=== PATIENT | female | born 1990 | race Caucasian/White ===

== ENCOUNTER 2016-11-18 21:20 | Emergency (ER) | payer MEDICAID ==
[~2016-11-18] VITALS: Ht 162.6 cm; Wt 79.3 kg
[~2016-11-18 21:20] MED LIST: ETON68IM3 IL; HYDR25TA85 PO; PROP20TA7 PO; VENL-69 PO
[2016-11-18 21:30] VITALS: TEMP 98.1; Ht 162.6 cm; Wt 79.3 kg
[2016-11-18] MEDS ORDERED: VENL-67 PO (21:39)
[2016-11-18] MEDS ORDERED: PRAZ2CAP2 PO (21:39)
--- NOTE | 2016-11-18 21:44 | NUR ---
PROVIDER DR. ABBASI IN ROOM
--- NOTE | 2016-11-18 21:50 | ERPDOC ---
Departure Disposition Decision Date: Nov 18, 2016 Disposition Decision Time: 23:00 Disposition: 01 DISCHARGED HOME, SELF-CARE Impression Impression Impression: Primary Impression: Neck pain Severity: Severe Condition: Improved Seen By: Physician only Patient Instructions: Acute Neck Pain (ED) Problems/Meds/Labs Reviewed?: Yes Medications reviewed and manag: Yes Additional Instructions: Take ibuprofen 600 mg 4 times daily or Aleve 2 tablets twice daily for baseline pain control Percocet 5 mg one tablet up to 4 times daily as needed for pain Zofran 4 mg dissolvable, one tablet 4 times daily as needed with Percocet for nausea See your doctor next week if not improving Follow up care ordered?: Yes Mental Status: Alert, Oriented Scripts Ondansetron (Zofran Odt) 4 Mg Tab.rapdis 4 MG PO Q6HR, #30 TAB Oral disintegrating tablet Prov: FORD ABBASI MD 11/18/16 Oxycodone HCl/Acetaminophen (Percocet 5-325 mg Tablet) 5-325 Tablet 1 TAB PO QID for PAIN, #30 TAB Take 1 tablet, by mouth, 4 times a day. Prov: FORD ABBASI MD 11/18/16 HPI - Back Pain General Chief Complaint: Neck Pain Stated Complaint: NECK PAIN Time Seen by Provider: 21:25 Source: patient Exam Limitations: no limitations HPI - Back Pain Initial Comments 5 day history progressive midline posterior neck pain without injury. Pain has worsened to the point she is crying and vomiting from pain. No relief with otc meds. Mild achy feeling prior Pt admits she "carries all her stress in her neck." Occurred At: home Onset/Timing: Gradual Duration: 1 week Severity/Quality: severe Location: C-spine Method of Injury/Context: unknown Associated Sypmtoms: DENIES: fever, loss of bladder control, loss of bowel control, lower back pain, muscle spasms, numbness in legs/feet, sensory/motor loss, tingling in legs/feet, weakness Hx of Similar Symptoms: No Allergies: Coded Allergies: Sulfa (Sulfonamide Antibiotics) (Verified Allergy, Intermediate, HIVES, ) hydrocodone (Verified Allergy, Mild, HIVES, 08/07/16) tramadol (Verified Adverse Reaction, Intermediate, seizures, interacts with effexor, 08/07/16) Past History Past Medical History Respiratory: asthma GI: ulcers Female: UTI, kidney stones Psychological: anxiety, other Surgical History Denies Surgeries Vaccines Hx Influenza Vaccination: Yes (fall 2013) Hx Pneumococcal Vaccination: No Hx Tetanus, Diptheria, Pertuss: Yes (04/19/15) Social History Smoking Status: Never smoker Does patient use chewing tobac: No Second Hand Exposure: No Substance Use Type: does not use Alcohol Intake: occasionally Last Drink: prior to arrival Marital Status: Single Housing: apartment Record Review Pertinent history updated: Yes Review of Systems Constitutional Constitutional: DENIES: appetite decrease, appetite increase, chills, dizziness , fever, weakness ENMT Ears: DENIES: pain Hearing: DENIES: hearing loss, tinnitus Balance: DENIES: vertigo Mouth/Throat: DENIES: change in swallowing, change in voice, hoarsness, painful swallowing, sore throat Cardiovascular Cardiac: DENIES: chest pain, dyspnea on exertion Rhythm/Rate: DENIES: irregular beat, palpitations, tachycardia Vascular: DENIES: pedal edema Pulmonary Respiratory: DENIES: cough, dyspnea, pleuritic chest pain GI Upper Abdomen: DENIES: dysphagia, heartburn/indigestion, nausea, pain, vomiting Lower Abdomen: DENIES: blood in stool, constipation, diarrhea, pain General: DENIES: burning, dysuria, frequency, pain, urgency Musculoskeletal General: pain, tenderness, DENIES: atrophy of muscles, cramps, gout, joint pain , joint swelling, spasm, weakness Integumentary Skin: DENIES: rash, sores Neurological General: DENIES: headache, numbness, tingling, vertigo, weakness Psychiatric Psychiatric: DENIES: anxiety, depression, nervousness Physical Exam General General Nourishment: well nourished, well developed, appears stated age General Body Habitus: well groomed Vitals and Pain First Documented Vital Signs Date Time Temp Pulse Resp B/P Pulse Ox O2 Delivery O2 Flow Rate FiO2 11/18/16 21:30 98.1 85 16 133/89 97 Room Air Weight: Kilograms: 79.300 Height (feet): 5 Height (inches): 4.00 Triage Pain Scale: RN VS reviewed by Provider: Yes Comments Patient appears in moderate distress from pain, flexing her neck slightly forward at the lower cervical region to achieve the greatest comfort Normal Exams: Head: Normocephalic w/o trauma Eyes: Pupils are PERRLA w/ EOMI, No scleral icterus, irritation, or foreign bodies noted ENMT (brief) ENMT Brief: FOUND: TM clear, TM good light reflex, ear canals clear, mucosa moist, nasal erythema, nasal exudate, nasal swelling, normal dentition, normal tonsils, NOT FOUND: lesions, petechiae, pharnyx erythema, tonsillar deviation Neck (brief) Neck: FOUND: tenderness (moderate midline posterior cervical neck tenderness, mild to moderate paraspinal tenderness throughout the cervical spine.), trachea midline, NOT FOUND: JVD, adenopathy, nuchal rigidity, thyromegaly, tracheal deviation Comments When laying flat patient is able to touch her chin to her chest, but this does cause posterior pain. Negative leg raise bilaterally Respiratory (brief) Respiratory: FOUND: clear all siddiqui, equal bilaterally, symmetrical, NOT FOUND : rales, spasm, tenderness, wheezes Cardiovascular (brief) Cardiac: FOUND: regular rate, regular rhythm, NOT FOUND: click, gallop, murmur , pedal edema Capillary Refill: <2 sec Pulses: all distal extremities, equal, strong Abdomen (brief) Abdominal Brief: FOUND: bowel normo active x4, soft, NOT FOUND: distended, hepatosplenomegaly, tender Lymphatic (brief) Lymphatic Brief: NOT FOUND: adenopathy, lymphedema Musculoskeletal (brief) Musculoskeletal Brief: FOUND: tenderness, NOT FOUND: deformity, loss of motion , spasm Integumentary (brief) Integumentary Brief: FOUND: dry, pink, warm Neurologic (brief) Neurological Brief: FOUND: CN w/o gross def to obs, DTR 2/4 all extremities, gait w/o gross def to obs, motor-no gross deficits, sensory-no gross deficits, NOT FOUND: ataxia Psychiatric (brief) Psychiatric Brief: FOUND: alert, attentive, normal affect, oriented Progress Results/Orders Orders Procedure Category Date Status Time Ct Cervical Spine W/O CT 11/18/16 Taken Contrast Iv Lock (Ed Only) EDM 11/18/16 Transmitted 21:50 Cbc W/Auto LAB 11/18/16 Complete Diff-Reflex Manual C-Reactive Protein - LAB 11/18/16 Complete CRP 21:50 Lactate - Lactic Acid LAB 11/18/16 Complete Ketorolac (Toradol) PHA 11/18/16 Complete 22:00 Orphenadrine (Norflex) PHA 11/18/16 Complete 22:00 Diphenhydramine PHA 11/18/16 Complete (Benadryl) 22:15 Methylprednisolone PHA 11/18/16 Complete Sod Succ (Solu-Medrol 22:15 Ondansetron Inj PHA 11/18/16 Transmitted (Zofran) 23:00 Hydromorphone PHA 11/18/16 Transmitted (Dilaudid) 23:00 Lab Results Laboratory Tests Test 11/18/16 22:06 White Blood Count 7.5T/MM3 Red Blood Count 4.44M/MM3 Hemoglobin 13.4GM/DL Hematocrit 40.8% Mean Corpuscular Volume 91.9UM3 Mean Corpuscular Hemoglobin 30.2UUG Mean Corpuscular Hemoglobin Concent 32.8GM/DL RDW Standard Deviation 43.2FL Platelet Count 237T/MM3 Mean Platelet Volume 12.4UM3 Immature Granulocyte % (Auto) 0.1% Neutrophils (%) (Auto) 50.5% Lymphocytes (%) (Auto) 38.2% Monocytes (%) (Auto) 7.0% Eosinophils (%) (Auto) 3.5% Basophils (%) (Auto) 0.7% Absolute Immature Granulocyte (auto 0.01T/MM3 Absolute Neutrophils (auto) 3.8T/MM3 Absolute Lymphocytes (auto) 2.9T/MM3 Absolute Monocytes (auto) 0.5T/MM3 Absolute Eosinophils (auto) 0.3T/MM3 Absolute Basophils (auto) 0.1T/MM3 C-Reactive Protein < 5.0MG/L Plasma Lactate 0.8MMOL/L Medications Current ED Medications Ketorolac Tromethamine (Toradol) 60 mg O ONCE IM ; Start 11/18/16 at 22:00; Stop 11/18/16 at 22:01; Status Cancel Orphenadrine Citrate (Norflex) 60 mg O ONCE IM ; Start 11/18/16 at 22:00; Stop 11/18/16 at 22:01; Status Cancel Ketorolac Tromethamine (Toradol) 30 mg O ONCE IV Last administered on 22:08; Start 11/18/16 at 22:00; Stop 11/18/16 at 22:01; Status DC Orphenadrine Citrate (Norflex) 60 mg O ONCE IV Last administered on 11/18/16 22:08; Start 11/18/16 at 22:00; Stop 11/18/16 at 22:01; Status DC Diphenhydramine HCl (Benadryl) 50 mg O ONCE IV Last administered on 11/18/16 22:15; Start 11/18/16 at 22:15; Stop 11/18/16 at 22:16; Status DC Methylprednisolone Sodium Succinate (Solu-Medrol) 125 mg O ONCE IV Last administered on 11/18/16 22:14; Start 11/18/16 at 22:15; Stop 11/18/16 at 22:16 ; Status DC Progress Progress Patient elects no narcotics at this time, given Toradol IV, Norflex IV - patient had an allergic reaction with hives and burning in her throat. Patient was given 50 mg Benadryl and slight Medrol 125 mg to relief. Patient has had slight decrease in her neck pain, but continues to have significant neck pain. Patient placed in a cervical collar for protection, CT cervical spine - normal CBC - n C-reactive protein - n Lactate - n FORD ABBASI MD Nov 18, 2016 21:50
[2016-11-18] MEDS ORDERED: KETOROLAC 60mg/2ml INJECTION IM ONE (22:00)
[2016-11-18] MEDS ORDERED: ORPHENADRINE 60mg/2ml INJECTION IV ONE (22:00)
[2016-11-18] MEDS ORDERED: ORPHENADRINE 60mg/2ml INJECTION IM ONE (22:00)
[2016-11-18] MEDS ORDERED: KETOROLAC 30mg/ml INJECTION IV ONE (22:00)
[2016-11-18 22:14] LABS: BASOPHILS # (AUTO) 0.1 T/MM3 (0-0.2); BASOPHILS % (AUTO) 0.7 % (0-2); EOSINOPHILS # (AUTO) 0.3 T/MM3 (0-0.5); EOSINOPHILS % (AUTO) 3.5 % (0-4); HCT - HEMATOCRIT 40.8 % (36-46); HGB - HEMOGLOBIN 13.4 GM/DL (12-16); IMMATURE GRANULOCYTE # (AUTO) 0.01 T/MM3 (0.00-0.03); IMMATURE GRANULOCYTE % (AUTO) 0.1 % (0.0-0.5); LYMPHOCYTES # (AUTO) 2.9 T/MM3 (1-4.8); LYMPHOCYTES % (AUTO) 38.2 % (23-45); MEAN CORPUSCULAR HGB 30.2 UUG (26-34); MEAN CORPUSCULAR HGB CONC(MCHC 32.8 GM/DL (31-37); MEAN CORPUSCULAR VOLUME 91.9 UM3 (80-100); MEAN PLATELET VOLUME 12.4 UM3 (9.4-12.4); MONOCYTES # (AUTO) 0.5 T/MM3 (0-0.8); NEUTROPHILS #(AUTO)-ABSOLUTE 3.8 T/MM3 (1.8-7.7); NEUTROPHILS % (AUTO) 50.5 % (33-66); RED BLOOD COUNT 4.44 M/MM3 (4.00-5.20); WBC - WHITE BLOOD COUNT 7.5 T/MM3 (4.5-11.0)
[2016-11-18] MEDS ORDERED: DiphenhydrAMINE 50 MG/ML INJECTION IV ONE (22:15)
--- NOTE | 2016-11-18 22:33 | NUR ---
COMFORT PT IS GIVEN WARM BLAKET PER REQUEST.
[2016-11-18] MEDS ORDERED: HYDROMORPHONE 2mg/ml INJECTION IV ONE (23:00)
[2016-11-18] MEDS ORDERED: ONDANSETRON 4mg/2ml INJECTION IV ONE (23:00)
[2016-11-18] MEDS ORDERED: ONDA4TAB7 PO (23:01)
[2016-11-18] MEDS ORDERED: OXYC1TAB8 PO (23:01)
--- NOTE | 2016-11-18 23:03 | NUR ---
REPORT REPORT TO SARAH ARGUELLO. CARES RELEASED.
[2016-11-18] MEDS ORDERED: OXYCODONE/APAP 5/325 (Prepack) SENT HOME ONE (23:15)
[2016-11-18] MEDS ORDERED: ONDANSETRON ODT 4mg #3 (PrePack) SENT HOME ONE (23:15)
--- NOTE | 2016-11-18 23:34 | NUR ---
TAKE HOME PREPACK ZOFRAN ODT AND PERCOCET GIVEN TO PT.
[2016-11-18 23:37] VITALS: BP 135/79; PULSE 83; RESP 18; O2SAT 95
--- NOTE | 2016-11-18 23:37 | NUR ---
DISCHARGE PT GIVEN INSTRUCTIONS FOR CONT CARE OF NECK PAIN W/ RX X2 OF ZOFRAN ODT AND PERCOCET. PT VERBALIZED UNDERSTANDING AND SIGNED FORM, LEFT ER AMBULATORY W/O ASSIST W/ PAIN 4/10 REDUCED, VS CHARTED AND IN NO DISTRESS.
--- NOTE | 2016-11-19 07:54 | DI ---
Indication: ITS.REASON: midline neck pain and tenderness PROCEDURE: CT CERVICAL SPINE W/O CONTRAST: Encounter: Initial Comparison: April 06, 2016 Technique: Axial CT images through the cervical spine were performed without contrast. Coronal and sagittal reformatted images were also obtained. Automated Exposure Control and Iterative Reconstruction dose reducing techniques were utilized. FINDINGS: The alignment of the cervical spine is straightened which could be positional or due to muscular spasm/strain. There is no evidence of acute fracture or subluxation of the cervical spine. The facet joints are well aligned with preservation of the intervertebral disk and facet joints. The atlantoaxial articulation, dens, and upper cervical spine demonstrate no subluxation. There is no evidence of significant spinal stenosis, foraminal compromise, or significant disk herniation. The paraspinal soft tissues and spinal canal appear unremarkable. IMPRESSION: No acute traumatic abnormality of the cervical spine. There is a preliminary report by virtual radiologic. .
== END 2016-11-18 23:37 | disposition home or self-care (01) ==
LOC: ED 21:20
DX: M54.2 Cervicalgia (principal)
CPT/HCPCS: 72125; 83605; 85025; 86140; 96374; 96375; 99284; J1170; J1200; J1885; J2360; J2405; J2930; L0150

== ENCOUNTER 2016-11-28 07:17 | Day surgery (SDC) | payer MEDICAID ==
[~2016-11-28] VITALS: Ht 162.6 cm; Wt 79.1 kg
[2016-11-28] VITALS (15 sets, daily range): BP systolic 114–180; BP diastolic 69–89; PULSE 71–112; RESP 14–24; TEMP 97.2–98.9; O2SAT 96–100; Ht 162.6 cm; Wt 79.1 kg
[~2016-11-28 07:17] MED LIST changes: -HYDR25TA85 PO; +LIDOCAINE 1% (10mg/ml) 2ml SDV INJ ONE; +ONDA4TAB7 PO; +PRAZ2CAP2 PO; -VENL-69 PO; +VENL150T7 PO; +VENL37.59 PO
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
[2016-11-28] MEDS ORDERED: BUPIVACAINE 0.25% (2.5mg/ml) INJ 30ml SDV ONE (07:40)
[2016-11-28] MEDS ORDERED: NEOMYCIN/POLYM/BACITR OINT PACKET TOP ONE (07:41)
[2016-11-28 07:46] LABS: HCT - HEMATOCRIT 41.7 % (36-46); HGB - HEMOGLOBIN 13.5 GM/DL (12-16); MEAN CORPUSCULAR HGB 30.2 UUG (26-34); MEAN CORPUSCULAR HGB CONC(MCHC 32.4 GM/DL (31-37); MEAN CORPUSCULAR VOLUME 93.3 UM3 (80-100); MEAN PLATELET VOLUME 11.7 UM3 (9.4-12.4); RED BLOOD COUNT 4.47 M/MM3 (4.00-5.20); WBC - WHITE BLOOD COUNT 6.2 T/MM3 (4.5-11.0)
--- NOTE | 2016-11-28 08:41 | ANESPREOP ---
Anesthesia Record Date and Time DATE: 11/28/16 TIME: 08:37 Pre-Op Diagnosis desires sterilization Proposed Surgical Procedure LAPAROSCOPIC TUBAL LIGATION Allergies: Coded Allergies: Sulfa (Sulfonamide Antibiotics) (Verified Allergy, Intermediate, HIVES, 11/28/16) hydrocodone (Verified Allergy, Mild, HIVES, 11/28/16) tramadol (Verified Adverse Reaction, Intermediate, seizures, interacts with effexor, 11/28/16) Ht/Wt/BMI Height: 5 ' 4.00 " Weight: 79.100 kg BMI: 29.9 kg/m2 Vital Signs Date Time Temp Pulse Resp B/P Pulse Ox O2 Delivery O2 Flow Rate FiO2 11/28/16 07:30 98.9 88 14 130/82 96 Room Air Medications Inpatient Medications Current Medications Medications (Trade) Dose Ordered Sig/Nadia Start Time Stop Time Status Last Admin Dose Admin Lactated Ringer's (Lactated Ringers) 1,000 ml @ 125 mls/hr Q8H 11/28/16 15:03 11/28/16 08:01 125 MLS/HR Etonogestrel (Nexplanon) 68 Mg Implant, 68 MG IL [id number], (Reported) Ondansetron (Zofran Odt) 4 Mg Tab.rapdis, 4 MG PO Q6HR Oral disintegrating tablet Last Taken: on Unknown Date & Time Prazosin HCl (Prazosin HCl) 2 Mg Capsule , 1 CAP PO HS, (Reported) Last Taken: on 11/27/16 07 Propranolol HCl (Propranolol HCl) 20 Mg Tablet, 20 MG PO HS PRN for ANXIETY, (Reported) Last Taken: on 11/27/16 07 Venlafaxine HCl (Venlafaxine HCl) 37.5 Mg Tablet , 1 TAB PO DAILY, (Reported) Last Taken: on 11/27/16 07 Venlafaxine HCl (Venlafaxine HCl ER) 150 Mg Tab.er.24, 1 TAB PO DAILY, (Reported) Last Taken: on 11/27/16 07 Currently on Beta Anna: Yes Beta Anna Last Taken: 11/27/16 AT 0700 Medical/Surgical History Anesthesia PMH: Reports: 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)), Denies: * Diabetes, *Hypertension, *WA, Anesthesia Reactions (NO AIRWAY ISSUES), Cancer, Glaucoma, Malignant Hyperthermia, Pneumonia, Reflux, Renal Disease, Seizures, Sleep Apnea, Thyroid Disease Smoking Status: Never smoker Use Chewing Tobacco?: No Second Hand Exposure: No Substance Use Type: does not use Alcohol Intake: a few times a month, other (occas) Last Drink: prior to arrival HX of Last Menstrual Period: OCTOBER 2016 Past Surgical History Orthopedic Surgeries: No Abdominal Surgeries: Yes - kidney cyst drained 07/07 Genitourinary Surgeries: No Cardiac Surgeries: No Endocrine Surgeries: No Reproductive Surgeries: No Neurological Surgeries: No Ear Surgeries: No Nose Surgeries: No Throat Surgeries: No Other Surgeries: No Anesthesia Adverse Reactions: FOUND none Family Hx of Anesthesia Advers: none Hx of Motion Sickness: No Pertinent Findings Laboratory Tests 11/28/16 07:37 Test 11/28/16 07:37 Human Chorionic Gonadotropin, Qual Negative (NEGATIVE) EKG Rhythm: Sinus Rhythm Physical Exam Respiratory: Bilat breath sounds equal, Lungs clear Cardiovascular: FOUND Regular rate, rhythm, FOUND No murmur Airway Assessment Mallampati Score: I TMD: 3 Fingerbreadths Neck Extension: Good Overall Assessment: No Airway Concerns ASA: 1 Plan Anesthesia Plan: GETA Discussion Discussed risks/options/alternatives of anesthesia and questions answered. Patient consents. Nursing pain assessment noted. Attestation Statement Prior to the delivery of any anesthetic medication, I examined the patient, developed the plan, obtained the patient's consent and discussed the risk and benefits of the procedure with the patient/guardian. RICCO REILLY CRNA Nov 28, 2016 08:41
[2016-11-28] MEDS ORDERED: MIDAZOLAM 2mg/2ml INJECTION IV ONE (08:45)
[2016-11-28] MEDS ORDERED: LIDOCAINE 2% (20mg/ml) 5ml PF SDV ONE (08:54)
[2016-11-28] MEDS ORDERED: PROPOFOL 200mg 20 ML IV ONE (08:54)
[2016-11-28] MEDS ORDERED: ROCURONIUM 50mg/5ml INJECTION IV ONE (08:54)
[2016-11-28] MEDS ORDERED: FENTANYL 250mcg/5ml INJECTION ONE (08:54)
[2016-11-28] MEDS ORDERED: DEXAMETHASONE 4mg/ml - 1ml INJECTION ONE (09:34)
[2016-11-28] MEDS ORDERED: ONDANSETRON 4mg/2ml INJECTION ONE (10:25)
[2016-11-28] MEDS ORDERED: DiphenhydrAMINE 50 MG/ML INJECTION IV PRN ×2 (10:30→11:30)
--- NOTE | 2016-11-28 10:31 | GYNOPNOTE1 ---
VENEER LAYER Postoperative Note Date of Operation: 11/28/16 Preoperative Diagnosis: Sterilization Postoperative Diagnosis: Same as Preoperative Procedure: Tubal Ligation LSTL w/ Filshie Clips Removal of Nexplanon from L arm Surgeon: Robert Morin MD Rn Transfer Surgeon: Robert Morin MD Complications: None Estimated Blood Loss: 5cc ROBERT MORIN MD Nov 28, 2016 10:31
[2016-11-28] MEDS: FENTANYL 100mcg/2ml INJECTION IV PRN ×2 (10:35→10:43)
[2016-11-28] MEDS ORDERED: OXYCODONE/APAP 5mg/325mg TABLET PO PRN (11:15)
[2016-11-28] MEDS ORDERED: METOCLOPRAMIDE 10mg/2ml INJECTION IV PRN (11:15)
[2016-11-28] MEDS ORDERED: MORPHINE 10mg/ml vl INJECTION IV PRN (11:15)
[2016-11-28] MEDS ORDERED: IBUPROFEN 400 MG TABLET PO PRN (11:15)
--- NOTE | 2016-11-28 11:39 | ANESPO ---
Post-Op Note Date 11/28/16 Time: 11:39 Status Pt Participated in Evaluation: Pt participated in person Vital Signs Date Time Temp Pulse Resp B/P Pulse Ox O2 Delivery O2 Flow Rate FiO2 11/28/16 11:17 20 11/28/16 11:10 84 114/78 99 Room Air 11/28/16 10:57 98.0 Respiratory Function: Airway patent Cardiovascular Function: Regular pulse Telemetry Pattern: SR Mental Status: Alert/oriented Pain Level Intensity: 3 Hydration: Taking po fluids, IV infusing Complications during Recovery None apparent Follow-Up Instructions Instructions Per Surgeon FADI CORREIA CRNA Nov 28, 2016 11:39
--- NOTE | 2016-11-28 11:40 | NUR ---
RASH POST MORPHINE PATIENT GIVEN 4MG MORPHINE IV FOR PAIN AT 1117. APPROX 3-4 MINUTES LATER PT C/O ITCHING AND ERYTHEMATOUS RASH NOTED ON RIGHT ARM. DR MORIN NOTIFIED AND ORDERS RECEIVED FOR BENADRYL 25-50MG IV Q4H PRN RASH. BENADRYL 25MG IV GIVEN. PT REPORTED SYMPTOM RESOLUTION AND RASH RESOLUTION APPROX 10 MINUTES AFTER ADMINISTRATION. NO ADDITIONAL MEDICATIONS GIVEN.
--- NOTE | 2016-11-28 12:00 | NUR ---
PAIN PATIENT REPORTING PAIN OF 3/10. PT REPORTS PAIN IS TOLERABLE AND REFUSED NEED FOR PO PERCOCET FOR PAIN.
[2016-11-28] MEDS ORDERED: LR 1,000 ML IV SCH (15:03)
--- NOTE | 2016-11-28 15:07 | OPNOTEF ---
DATE OF SURGERY: 11/28/2016 PREOPERATIVE DIAGNOSIS: 26-year-old white female G1, P1, desiring permanent sterilization. and removal of Nexplanon POSTOPERATIVE DIAGNOSIS: Same. PROCEDURES: Laparoscopic tubal ligation with Filshie clips, removal of Nexplanon implant from left arm. ESTIMATED BLOOD LOSS: 5 mL ANESTHESIA: General endotracheal by Neel Rogers CRNA SURGEON: Robert Brenner MD COMPLICATIONS: None. DESCRIPTION OF OPERATION Prior to starting the surgery the patient again vocalized her desire for permanent sterilization. The risks, complications and alternatives to this procedure were again reviewed and questions were answered to the Patient's satisfaction. A chance of failure is present (estimated at 1% ) coupled with an increased risk of ectopics if failure occurs. The patient is aware of this and still desires to proceed. After adequate general anesthesia and intubation, the patient was prepped and draped in the supine low lithotomy position. A speculum was used to visualize the cervix which was grasped at the 12 o'clock position with an Allis clamp. The uterine manipulator was then placed within the cervix for uterine manipulation during surgery. We then changed gloves and approached the abdomen and a subumbilical area was anesthetized with 0.25% Marcaine. Then a #11 blade was used to make an incision, 0.5 cm in size and the abdomen was tented and a Veress needle was inserted. Saline drop test was used to confirm intraabdominal placement. Then the abdomen was insufflated with CO2. Veress needle was removed and a 5-mm bladeless safety trocar was inserted with the camera inside it for direct vision. Trocar & camera were removed, sheath was left in place and a camera was re-inserted to confirm intraabdominal placement and no obvious injury. Patient was then placed in Trendelenburg and an area was anesthetized 2 cm suprapubically and then an incision made and an 8-mm port was placed. This was done by direct vision, and then we had a view of the pelvis. Tubes and ovaries appeared normal except there were bilateral cysts of Morgagni present on the fallopian tubes, one on each side. Uterus appeared normal bilaterally. Appendix was normal. Liver edge was smooth. No abnormalities were noted and no masses were seen inferior to the area around the intestines. We then used Filshie clips and placed them in the mid isthmic portion of the right, then the left fallopian tube with care being taken to make sure the entire tube was crossed before the clip was placed. Then instruments were removed from the abdomen and CO2 was allowed to escape. Hemostasis was confirmed by direct visualization with the removal, then a horizontal mattress suture was placed on the suprapubic incision and a simple interrupted on the umbilical incision to close the sites. Patient tolerated the procedure well. Instruments were removed from the vagina and this procedure was completed. Once the tubal ligation was completed, then we straightened out her left arm from the tucked position and I prepped and draped the area over the Nexplanon implant. Once it was prepped and draped I identified the location of the implant and then made a vertical skin incision over the distal aspect of the nub. First, I anesthetized with 0.25% Marcaine and I used an 11-blade for the incision. Then I isolated the tip of the implant and extracted it from its capsule and removed it intact. Once it was removed intact and complete then I put a simple stitch of 4-0 Monocryl to bring the edges together and then we put a pressure dressing on the left arm. AKHIL
== END 2016-11-28 12:15 | disposition home or self-care (01) ==
LOC: SCU 07:17
PROVIDERS: ATTEND Obstetrics & Gynecology
DX: Z30.2 Encounter for sterilization (principal); Z30.46 Encounter for surveillance of implantable subdermal contraceptive; F41.9 Anxiety disorder, unspecified; Z79.899 Other long term (current) drug therapy; Z88.2 Allergy status to sulfonamides; Z88.5 Allergy status to narcotic agent
CPT/HCPCS: 11982; 36415; 58671; 84703; 85027; J1100; J1200; J2250; J2405; J2704; J3010; J7120; S0020

== ENCOUNTER 2016-12-22 08:54 | Emergency (ER) | payer MEDICAID ==
[~2016-12-22] VITALS: Ht 162.6 cm; Wt 77.7 kg
[~2016-12-22 08:54] MED LIST changes: -LIDOCAINE 1% (10mg/ml) 2ml SDV INJ ONE
[2016-12-22 08:57] VITALS: Ht 162.6 cm; Wt 77.7 kg
--- OUTSIDE RECORDS SUMMARY | 2016-12-22 08:58 | XMS REPORT | Continuity of Care Document ---
Author Author [facility] Organization [facility] Address Unknown Phone Unavailable Care Team Providers Care Sql Database Developer Name Role Phone MIGUELINA DORADO MD Primary Care Physician [phone] Insurance Providers Guarantor Blanche Rm Address [address] [place] [address] Email DENIED 11-28-16 Payer [facility] [email or web address] Plan Policy Number [id number] Subscriber's Name Blanche Rm Relationship 18 Self Effective Date 16 Expiration Date 16 Advance Directives Directive Response Recorded Date/Time Ordered Resuscitation Status Full Code 11/27/16 3:13pm Resuscitation Documents on File No 11/28/16 7:38am DPOA for Healthcare Only No 11/28/16 7:38am Living Will No 11/28/16 7:38am Problems Active Problems Medical Problem Onset Date [...] bite Unknown Acute Microscopic hematuria Unknown Acute Pelvic inflammatory disease (PID) Unknown Acute Renal cyst, left Unknown Acute Trichomoniasis of vagina Unknown Acute Viral gastroenteritis Unknown Acute Vomiting Unknown Acute Past Problems Medical Problem Onset Date Alcohol intoxication Unknown Anxiety Unknown Cervical strain, acute Unknown Minor head injury Unknown Neck pain Unknown Panic attack Unknown Rib contusion Unknown Urinary tract infection Unknown Medications Current Home Medications Medication Dose Units Route Directions Days Qty Instructions Start Date Etonogestrel (Nexplanon) 68 Mg Implant 68 Mg Implant [id number] Ondansetron (Zofran Odt) 4 Mg Tab.rapdis 4 Mg Oral Q6h/0300,0900,1500,2100 30 Tablet Oral disintegrating tablet 11/18/16 Prazosin Hcl 2 Mg Capsule 1 Cap Oral Bedtime 30 Capsule 11/18/16 Propranolol Hcl 20 Mg Tablet 20 Mg Oral Bedtime as needed for Anxiety 10/11/15 Venlafaxine Hcl 37.5 Mg Tablet 1 Tab Oral Daily 60 Tablet 11/27/16 Venlafaxine Hcl (Venlafaxine Hcl Er) 150 Mg Tab.er.24 1 Tab Oral Daily 30 Tablet 11/27/16 Past Home Medications Medication Directions Ordered Status [...] Problem Response Recorded Date/Time Onset Date Status Chewing Tobacco Status No 11/27/2016 10:50am Not Applicable Not Applicable Hx Substance Use No 11/28/2016 7:39am Not Applicable Not Applicable Hx Alcohol Use Y OCC. 11/28/2016 7:39am Not Applicable Not Applicable Has the pt used tobacco in the last 12 months No 11/28/2016 7:39am Not Applicable Not Applicable Tobacco Usage none 03/26/2014 9:59pm Not Applicable Not Applicable Query Response Start Date Stop Date Smoking Status Never smoker Hospital Discharge Instructions No hospital discharge instructions. Plan of Care Discharge Date 11/28/16 12:15pm Prescriptions See Medication Section Functional Status Query Response Date Recorded Ability to complete ADL's impeded by No change November 28, 2016 7:38am Allergies, Adverse Reactions, Alerts Allergen Type Severity Reaction Status Last Updated Sulfa (Sulfonamide Antibiotics) Allergy Intermediate HIVES Active 11/28/16 Hydrocodone Allergy Mild HIVES Active 11/28/16 Tramadol Adverse Reaction Intermediate seizures, interacts with effexor Active 11/28/16 Immunizations Query Response on File Recorded Date/Time Hx Influenza Vaccination Y fall 201511/28/16 7:39am Hx Pneumococcal Vaccination No 11/28/16 7:39am Hx Tetanus, Diptheria, Pertussis Y 04/19/15 05/14/15 6:37pm Hx Influenza Vaccination Y fall 201511/28/16 7:39am Hx Tetanus, Diptheria, Pertussis Y 04/19/15 05/14/15 6:37pm Influenza Vaccine Hx NO 11/18/16 9:44pm Vital Signs Acute Vital Signs Vital Response Date/Time Temperature (Fahrenheit) 98.0 deg F (96.8 - 99.1) 11/28/2016 10:57am Temperature (Calculated Celsius) 36.67350 degrees C (36.0 - 37.3) 11/28/2016 10:57am Temperature Source Oral 11/28/2016 10:57am Pulse Rate (adult) 78 bpm (60 - 100) 11/28/2016 12:15pm Respiratory Rate 18 breaths/min (10 - 20) 11/28/2016 12:15pm O2 Sat by Pulse Oximetry 100 % (90 - 100) 11/28/2016 12:15pm Oxygen Delivery Method Room Air 11/28/2016 11:10am Blood Pressure 131/81 mm Hg 11/28/2016 12:15pm Blood Pressure Source Automatic Cuff 11/28/2016 12:15pm Height (Feet) 5 feet 11/28/2016 7:29am Height (Inches) 4.00 inches 11/28/2016 7:29am Weight (Kilograms) 79.100 kg 11/28/2016 7:29am Body Mass Index (BMI) 29.9 11/28/2016 7:29am Results Laboratory Results Test Name Result Units Flags Reference Collection Date/Time Result Date/ Time Comments White Blood Count 6.2 T/MM3 4.5-11.0 11/28/2016 7:37am 11/28/2016 7: 46am Red Blood Count 4.47 M/MM3 4.00-5.20 11/28/2016 7:37am 11/28/2016 7: 46am Hemoglobin 13.5 GM/DL 12-16 11/28/2016 7:37am 11/28/2016 7:46am Hematocrit 41.7 % 36-46 11/28/2016 7:37am 11/28/2016 7:46am Mean Corpuscular Volume 93.3 UM3 80-100 11/28/2016 7:37am 11/28/2016 7: 46am Mean Corpuscular Hemoglobin 30.2 UUG 26-34 11/28/2016 7:37am 2016 7:46am Mean Corpuscular Hemoglobin Concent 32.4 GM/DL 31-37 11/28/2016 7:37am 11/28/2016 7:46am RDW Standard Deviation 45.0 FL 36.9-50.2 11/28/2016 7:37am 11/28/2016 7 :46am Platelet Count 227 T/MM3 130-400 11/28/2016 7:37am 11/28/2016 7:46am Mean Platelet Volume 11.7 UM3 9.4-12.4 11/28/2016 7:37am 11/28/2016 7: 46am Neutrophils (%) (Auto) 50.5 % 33-66 11/18/2016 [...] 0.6-2.2 11/18/2016 10:06pm 11/18/2016 10: 50pm Procedures Procedure Status Date Provider(s) Ct neck spine w/o dye Completed 11/18/16 Assay of lactic acid Completed 11/18/16 Complete cbc w/auto diff wbc Completed 11/18/16 C-reactive protein Completed 11/18/16 Ther/proph/diag inj iv push Completed 11/18/16 Tx/pro/dx inj new drug addon Completed 11/18/16 Tx/pro/dx inj new drug addon Completed 11/18/16 Tx/pro/dx inj new drug addon Completed 11/18/16 Tx/pro/dx inj new drug addon Completed 11/18/16 Tx/pro/dx inj new drug addon Completed 11/18/16 Emergency dept visit Completed 11/18/16 [id number]"INJECTION, HYDROMORPHONE, UP TO 4 MG" Completed 11/18/16 [id number]"INJECTION, DIPHENHYDRAMINE HCL, UP TO 50 MG" Completed 11/18/16"INJECTION, KETOROLAC TROMETHAMINE, PER 15 MG" Completed 11/18/16"INJECTION, ORPHENADRINE CITRATE, UP TO 60 MG" Completed 11/18/16"INJECTION, ONDANSETRON HYDROCHLORIDE, PER 1 MG" Completed 11/18/16"INJECTION, METHYLPREDNISOLONE SODIUM SUCCINATE, UP TO Completed [id number]/OCCIPITAL PIECE) Completed 11/18/16 Laparoscopic bilateral tubal ligation Completed 11/28/16 JOHNIE MORIN MD Encounters Encounter Location Arrival/Admit Date Discharge/Depart Date Attending Provider Departed [facility] 11/28/16 7:17am 11/28/16 12 :15pm JOHNIE MORIN MD Departed Emergency Room [facility] 11/18/16 9:20pm 11/18/16 11: 37pm FORD ABBASI MD
[2016-12-22] MEDS ORDERED: NORMAL SALINE 1,000 ML IV ONE (09:06)
--- NOTE | 2016-12-22 09:08 | NUR ---
PROVIDER DR. THACKER AT BEDSIDE FOR EXAM.
--- NOTE | 2016-12-22 09:14 | ERPDOC ---
Departure Disposition Decision Date: December 22, 2016 Disposition Decision Time: 11:02 Disposition: 01 DISCHARGED HOME, SELF-CARE Impression Impression Impression: Primary Impression: Back pain Back pain location: low back pain Chronicity: acute Back pain laterality: bilateral Sciatica presence: without sciatica Qualified Codes: M54.5 - Low back pain Additional Impression: Renal cyst, left Severity: Moderate Condition: Improved Seen By: Physician only Referrals: MIGUELINA DORADO MD (PCP) SUYAPA POWERS APRN (Family) 1 Week Patient Instructions: Acute Low Back Pain (ED) Problems/Meds/Labs Reviewed?: Yes Medications reviewed and manag: Yes Additional Instructions: We did not find the cause of your low back pain today. It could be caused by a muscle strain or by your kidney cyst. Continue to take NSAIDs as needed for pain , add the robaxin and heat for muscle strain. If your symptoms don't improve, follow up with your doctor. Departure Forms: Return to Work/School Permit Follow up care ordered?: Yes Mental Status: Alert, Oriented Scripts Methocarbamol (Robaxin) 500 Mg Tablet 500 MG PO Q6HPRN for 30 Days, #120 TAB Prov: DECEMBERBIGG DO 12/22/16 HPI - Female General Chief Complaint: Nausea,Vomiting,Diarrhea Stated Complaint: BACK PAIN, VOMITING Time Seen by Provider: 09:06 Source: patient Exam Limitations: no limitations HPI - Female Initial Comments 26yo woman presents to the ER today for 'kidney pain'. Pt has b/l flank pain, R> >L. Pt has an appt with her PCM in 2 hours, but 'cannot make it until then'. Has a long h/o kidney pathology (UTIs, stones, etc) and other genitourinary concerns (including PID). Pt had a tubal ligation 1mo ago. Says this feels similar to prior kidney stones. Occurred At: home Onset: Rapid Duration: 6-12 hrs Pain Scale: Now & Worst: 8/10 Severity/Quality: cramping, sharpness Location: right flank, left flank Radiation: none Activities at Onset: sleep Prior Genitourinary Problems: similar symptoms Modifying Factors: IMPROVES WITH: rest, sitting, WORSE WITH: movement, palpation, walking Associated Symptoms: lower back pain, nausea/vomiting, urinary frequency Hx of Similar Symptoms: Yes Is Pt now?: No : 1 Para: 1 Allergies: Coded Allergies: Sulfa (Sulfonamide Antibiotics) (Verified Allergy, Intermediate, HIVES, 12/22/16) hydrocodone (Verified Allergy, Mild, HIVES, 12/22/16) tramadol (Verified Adverse Reaction, Intermediate, seizures, interacts with effexor, 12/22/16) Past History Past Medical History Respiratory: asthma GI: ulcers Female: PID, UTI, kidney stones Psychological: anxiety, other Surgical History Reproductive/: tubal ligation Vaccines Hx Influenza Vaccination: Yes (FALL 2015) Hx Pneumococcal Vaccination: No Hx Tetanus, Diptheria, Pertuss: Yes (04/19/15) Social History Does patient use chewing tobac: No Second Hand Exposure: No Substance Use Type: does not use Alcohol Intake: occasionally Last Drink: prior to arrival Marital Status: Single Housing: apartment Review of Systems GI Upper Abdomen: nausea General: frequency, renal stones All other Systems All Other Systems: Reviewed and Negative Physical Exam General General Nourishment: well nourished, well developed, appears stated age, no acute distress, adult, obese General Body Habitus: well groomed Vitals and Pain First Documented Vital Signs Date Time Temp Pulse Resp B/P Pulse Ox O2 Delivery O2 Flow Rate FiO2 12/22/16 08:57 98.8 96 18 124/76 98 Room Air Weight: Kilograms: Height (feet): 5 Height (inches): 4.00 Triage Pain Scale: RN VS reviewed by Provider: Yes Normal Exams: Head: Normocephalic w/o trauma Eyes: Pupils are PERRLA w/ EOMI, No scleral icterus, irritation ENMT: No facial trauma, nasal exudates, pharyngeal erythema Neck: Full range of motion, without adenopathy, JVD Lymphatic: No lymphadenopathy Musculoskeletal: No tenderness, or deformity noted Integumentary: No rashes, hives, or bruising noted Neurologic: Patient is alert, and oriented Psychiatric: Patient exhibits, appropriate attention Respiratory (brief) Respiratory: FOUND: clear all siddiqui, equal bilaterally, symmetrical, NOT FOUND : rales, wheezes Cardiovascular (brief) Cardiac: FOUND: regular rate, regular rhythm, NOT FOUND: click, gallop, murmur , pedal edema, peripheral edema, rub Capillary Refill: <2 sec Pulses: all distal extremities, equal, strong Abdomen (brief) Abdominal Brief: FOUND: bowel normo active x4, soft, tender (B/l), NOT FOUND: distended, hepatosplenomegaly, pulsatile mass Comments Pos Sarthak's b/l Differential Diagnoses Considering: PID, Ectopic , Pyelonephritis, Renal Colic, UTI Progress Results/Orders Orders Procedure Category Date Status Time Cbc W/Auto LAB 12/22/16 Complete Diff-Reflex Manual 09:06 Bmp - Basic Metabolic LAB 12/22/16 Complete Panel 09:06 Ct Renal W/O Contrast CT 12/22/16 Resulted 09:06 Iv Lock (Ed Only) EDM 12/22/16 Transmitted 09:06 Normal Saline (Normal PHA 12/22/16 Complete Saline Iv) 09:06 Ketorolac (Toradol) PHA 12/22/16 Complete 09:15 Ondansetron Inj PHA 12/22/16 Complete (Zofran) 09:15 LAB 12/22/16 Complete Qualitative, Serum 09:06 UA, LAB 12/22/16 Complete Dip&Micro(Complete) & 09:19 Lab Results Laboratory Tests Test 12/22/16 09:19 White Blood Count 6.7T/MM3 Red Blood Count 4.60M/MM3 Hemoglobin 13.9GM/DL Hematocrit 42.6% Mean Corpuscular Volume 92.6UM3 Mean Corpuscular Hemoglobin 30.2UUG Mean Corpuscular Hemoglobin Concent 32.6GM/DL RDW Standard Deviation 44.1FL Platelet Count 242T/MM3 Mean Platelet Volume 11.8UM3 Immature Granulocyte % (Auto) 0.1% Neutrophils (%) (Auto) 57.2% Lymphocytes (%) (Auto) 32.7% Monocytes (%) (Auto) 6.8% Eosinophils (%) (Auto) 2.8% Basophils (%) (Auto) 0.4% Absolute Immature Granulocyte (auto 0.01T/MM3 Absolute Neutrophils (auto) 3.8T/MM3 Absolute Lymphocytes (auto) 2.2T/MM3 Absolute Monocytes (auto) 0.5T/MM3 Absolute Eosinophils (auto) 0.2T/MM3 Absolute Basophils (auto) 0.0T/MM3 Urine Collection Type Cleancatch-midstream Urine Color Yellow Urine Turbidity Clear Urine pH 5.5 Urine Specific [place] 1.010 Urine Protein Negative Urine Glucose (UA) Negative Urine Ketones Negative Urine Blood Trace-intact Urine Nitrite Negative Urine Bilirubin Negative Urine Urobilinogen 0.2EU/DL Urine Leukocyte Esterase 1+ Urine RBC 1-3/HPF Urine WBC 3-5/HPF Urine Squamous Epithelial Cells 10-20 Urine Bacteria 3+ Urine Mucus Present Urine Culture Indicated Cult not indicated Turbidity < 20 Sodium Level 144MEQ/L Potassium Level 4.0MEQ/L Chloride Level 110MEQ/L Carbon Dioxide Level 21MEQ/L Anion Gap 13MEQ/L Blood Urea Nitrogen 10.0MG/DL Creatinine 0.6MG/DL Glomerular Filtration Rate Calc 119 BUN/Creatinine Ratio 17RATIO Glucose Level 89MG/DL Calculated Osmolality 275MOSM/KG Calcium Level 9.7MG/DL Icterus Index < 2 Human Chorionic Gonadotropin, Qual Negative Chemistry Specimen Hemolysis < 15 Medications Current ED Medications Sodium Chloride (Normal Saline IV) 1,000 ml @ 0 mls/hr Q0M ONCE IV Last administered on 12/22/16 09:34; Start 12/22/16 at 09:06; Stop 12/22/16 at 09:07; Status DC Ketorolac Tromethamine (Toradol) 30 mg O ONCE IV Last administered on 09:37; Start 12/22/16 at 09:15; Stop 12/22/16 at 09:16; Status DC Ondansetron HCl (Zofran) 4 mg O ONCE IV Last administered on 12/22/16 09:34; Start 12/22/16 at 09:15; Stop 12/22/16 at 09:16; Status DC Progress Progress No evidence of renal stones. Left renal cyst again demonstrated. Likely muscle strain. Discussed dx, prognosis, tx, and f/u needs with pt, who voiced understanding. F/u with PCM. CT CT : CT: Renal no contrast Interpretation: Normal, Reviewed Written Report BIGG THACKER DO December 22, 2016 09:14 DECEMBERBIGG DO December 22, 2016 09:14
[2016-12-22] MEDS ORDERED: ONDANSETRON 4mg/2ml INJECTION IV ONE (09:15)
[2016-12-22] MEDS ORDERED: KETOROLAC 30mg/ml INJECTION IV ONE (09:15)
--- NOTE | 2016-12-22 09:23 | NUR ---
IV ASSISTANCE REQUESTED FROM SARAH PIERCE AFTER TWO UNSUCCESSFUL IV ATTEMPTS BY THIS RN.
[2016-12-22 09:36] LABS: BASOPHILS % (AUTO) 0.4 % (0-2); EOSINOPHILS # (AUTO) 0.2 T/MM3 (0-0.5); EOSINOPHILS % (AUTO) 2.8 % (0-4); HCT - HEMATOCRIT 42.6 % (36-46); HGB - HEMOGLOBIN 13.9 GM/DL (12-16); IMMATURE GRANULOCYTE # (AUTO) 0.01 T/MM3 (0.00-0.03); IMMATURE GRANULOCYTE % (AUTO) 0.1 % (0.0-0.5); LYMPHOCYTES # (AUTO) 2.2 T/MM3 (1-4.8); LYMPHOCYTES % (AUTO) 32.7 % (23-45); MEAN CORPUSCULAR HGB 30.2 UUG (26-34); MEAN CORPUSCULAR HGB CONC(MCHC 32.6 GM/DL (31-37); MEAN CORPUSCULAR VOLUME 92.6 UM3 (80-100); MEAN PLATELET VOLUME 11.8 UM3 (9.4-12.4); MONOCYTES # (AUTO) 0.5 T/MM3 (0-0.8); MONOCYTES % (AUTO) 6.8 % (0-9.0); NEUTROPHILS #(AUTO)-ABSOLUTE 3.8 T/MM3 (1.8-7.7); NEUTROPHILS % (AUTO) 57.2 % (33-66); WBC - WHITE BLOOD COUNT 6.7 T/MM3 (4.5-11.0)
[2016-12-22 09:37] LABS: BLOOD, URINE TRACE-INTACT (NEGATIVE); COLOR,URINE YELLOW (YELLOW); LEUKOCYTE ESTERASE ,URINE 1+ (NEGATIVE); NITRITE,URINE NEGATIVE (NEGATIVE); UROBILINOGEN,URINE 0.2 EU/DL (NORMAL)
[2016-12-22 09:44] LABS: ANION GAP 13 MEQ/L (5-15); BUN/CREATININE RATIO 17 RATIO (6-26); CALCIUM 9.7 MG/DL (8.4-10.2); CHLORIDE 110 MEQ/L (98-107); CO2 - CARBON DIOXIDE 21 MEQ/L (22-30); CREATININE 0.6 MG/DL (0.7-1.2); GLOMERULAR FILTRATION RATE 119; GLUCOSE 89 MG/DL (65-110); SODIUM 144 MEQ/L (134-144)
[2016-12-22 09:58] LABS: BACTERIA,URINE 3+ (NEGATIVE)
[2016-12-22 09:59] LABS: MUCUS,URINE PRESENT
--- NOTE | 2016-12-22 10:16 | NUR ---
CT PT TO CT BY CART AT THIS TIME.
--- NOTE | 2016-12-22 10:24 | NUR ---
RETURN PT RETURNED FROM CT BY CART AT THIS TIME.
--- NOTE | 2016-12-22 10:46 | DI ---
Indication: ITS.REASON: Right flank pain Procedure: CT RENAL W/O CONTRAST: Encounter: Initial Comparison: 11/21/2014, 03/23/2014 Technique: Axial CT images were performed through the abdomen and pelvis without intravenous contrast. Coronal and sagittal reformatted images were also obtained. Automated Exposure Control and Iterative Reconstruction dose reducing techniques were utilized. Findings: Lower chest: The visualized lower lungs are well-aerated without focal airspace disease seen. The visualized heart is normal in size without pericardial effusion. Abdomen: The noncontrast liver is homogeneous in attenuation. The gallbladder is distended and appears normal. No biliary ductal dilatation. The noncontrast pancreas is homogeneous in attenuation. The spleen is normal in size and attenuation. The adrenal glands are within normal limits. Large left renal cyst. The noncontrast kidneys appear otherwise grossly normal with no stones or hydronephrosis. The ureters are normal in course and caliber with no stones or dilatation. The abdominal aorta is normal in course and caliber. The stomach is partially distended and appears grossly normal. Small bowel loops are normal in caliber without evidence of obstruction. The colon appears grossly normal. The appendix is normal. No intra-abdominal free air, free fluid, focal fluid collections, or lymphadenopathy. Pelvis: The bladder is distended and appears normal. The uterus appears grossly normal. Postoperative changes of bilateral tubal ligation. No pelvic free fluid or lymphadenopathy. Calcified pelvic phleboliths. Osseous structures and soft tissues: No acute osseous abnormality identified. Unchanged focally advanced for age degenerative disc disease at L3-L4. Impression: 1. No renal or ureteral stones, hydroureteronephrosis, or other evidence of obstructive uropathy. 2. No other acute abdominopelvic process identified by noncontrast CT. 3. Redemonstration of a large left renal cyst. .
--- NOTE | 2016-12-22 10:58 | NUR ---
PROVIDER DR. THACKER AT BEDSIDE TO SPEAK WITH PT.
[2016-12-22] MEDS ORDERED: METH500T PO (11:05)
[2016-12-22 11:15] VITALS: BP 97/51; PULSE 71; RESP 18; TEMP 98.8; O2SAT 99
--- NOTE | 2016-12-22 11:15 | NUR ---
DISCHARGE WRITTEN INSTRUCTIONS WITH ROBAXIN RX REVIEWED AND SENT WITH PT. PT VERBALIZES UNDERSTANDING OF DI AND MEDICATION, DENIES QUESTIONS. PT AMBULATES OUT OF ER WITH STEADY GAIT ACCOMP BY MALE OUTREACH REPRESENTATIVE AT THIS TIME.
== END 2016-12-22 11:15 | disposition home or self-care (01) ==
LOC: ED 08:54
DX: R11.2 Nausea with vomiting, unspecified (principal); M54.5 Low back pain; R35.0 Frequency of micturition; N28.1 Cyst of kidney, acquired
CPT/HCPCS: 74176; 80048; 81001; 84703; 85025; 96361; 96374; 96375; 99284; J1885; J2405; J7030